=== PATIENT | female | born 1930 | race Caucasian/White ===

== ENCOUNTER 2017-03-03 15:50 | Inpatient (IN) | payer OTHER, MEDICARE ==
[~2017-03-03] VITALS: Ht 152.4 cm; Wt 65.7 kg
[2017-03-03] MEDS ORDERED: NXM/40 PO (16:35)
[2017-03-03] MEDS ORDERED: TRAM-10 PO (16:36)
[2017-03-03] MEDS ORDERED: RRALBUT083 PO (16:37)
[2017-03-03] MEDS ORDERED: SODIUM CHLORIDE 0.9% 500ML 500 ML IV STA (16:42)
--- NOTE | 2017-03-03 16:53 | EMERGENCY ROOM VISIT NOTE ---
History Report prepared by Dinhibe: Uyen Cooper Under the Supervision of: Dr. Bakari Garcia M.D. First contact with patient: 16:36 Chief Complaint: ALTERED MENTAL STATUS Stated Complaint: SLURRED SPEECH - NUMBNESS IN RIGHT ARM Nursing Triage Summary: c/o right arm numbness and then began with slurred speech, unintelligible per granddaughter, speech would be clear and then be garbled and confused and then cleared. 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 She is accompanied by her grand-daughter and daughter in law. The patient states she first experienced numbness in her face that radiated to her right arm as well as slurred speech and confusion. According to her daughter in law, the patient slid out of bed this morning, but they do not think she hit her head. Her family admits to a minor right sided facial droop. The patient states she is unsure if she has ever experienced a TIA or CVA in the past. She denies any recent fevers, cough or cold symptoms, nausea, vomiting or diarrhea. She was treated for a UTI recently but finished the antibiotics over 1 week ago. Her family believes her symptoms seem to "come and go". They admit the patient seems to be displaying dementia symptoms and is "up all night, wandering around and tearing stuff apart". She also hallucinates occasionally. The patient moved to the area approximately 6 weeks ago. Her new primary care physician is Dr. Blank with [facility], but she has only seen Dr. Blank once so far. Source of History: patient, family Onset: 2 hours SIGNAL TESTER Position: other (global) Timing: intermittent Associated Symptoms: + numbness (face, right arm), No fevers, No cough ( cough or cold symptoms), No nausea, No vomiting, No diarrhea Review of Systems See HPI for pertinent positives & negatives. A total of 10 systems reviewed and were otherwise negative. Past Medical & Surgical Medical Problems: (1) History of urinary incontinence Family History Hypertension Social History Smoking Status: Never Smoker Alcohol Use: none Drug Use: none Marital Status: Housing Status: lives with family Occupation Status: retired Current/Historical Medications Scheduled Esomeprazole Magnesium (Nexium), 40 MG PO DAILY Scheduled PRN Albuterol Sulf (Albuterol Sulfate), 3 ML PO Q6 PRN for Shortness of Breath Tramadol (Ultram), 50 MG PO Q8H PRN for Pain Allergies Coded Allergies: No Known Allergies (Unverified , 03/03/17) Physical Exam Vital Signs Date Time Temp Pulse Resp B/P (MAP) Pulse Ox O2 Delivery O2 Flow Rate FiO2 03/03/17 18:23 76 18 135/89 95 Room Air 03/03/17 16:58 95 Room Air 03/03/17 16:37 81 03/03/17 16:07 36.8 94 20 131/83 95 Room Air Physical Exam GENERAL: Patient is in no acute distress. HEENT: No acute trauma, normocephalic atraumatic, mucous membranes moist, no nasal congestion, no scleral icterus. NECK: No stridor, no adenopathy, no meningismus, trachea is midline. LUNGS: Clear to auscultation bilaterally, no wheeze, no rhonchi, breath sounds equal. HEART: Without murmurs gallops or rubs, regular rate and rhythm. ABDOMEN: Soft, nontender, bowel sounds positive, no hernias, no peritonitis. EXTREMITIES: No cyanosis or edema, full range of motion of all the joints without pain or difficulty, no signs for acute trauma. NEUROLOGIC: Some confusion and some difficulty following commands. No obvious focal motor deficits. No pronator drift or cerebellar disfunction. No facial droop or obvious speech slur. SKIN: No rash, no jaundice, no diaphoresis. Medical Decision & Procedures ER Provider Diagnostic Interpretation: Radiology results as stated below per my review and radiologist interpretation: HEST ONE VIEW PORTABLE CLINICAL HISTORY: 86 years-old Female presenting with Stroke. TECHNIQUE: Portable upright AP view of the chest was obtained. COMPARISON: None. FINDINGS: Atherosclerosis of the aortic arch. Mild prominence of the cardiac silhouette. Opacity in the left mid and base. Osseous structures normal. Upper abdomen normal. IMPRESSION: 1. Opacity in the left mid and base. This could represent atelectasis, infection, or aspiration. Electronically signed by: Willam Rashid M.D. 03/03/2017 5:08 PM HEAD WITHOUT CONTRAST (CT) CLINICAL HISTORY: 86 years-old Female presenting with Stroke. TECHNIQUE: Multidetector CT imaging of the head was performed without the use of intravenous contrast. IV contrast: None. A dose lowering technique was used consistent with the principles of ALARA (as low as reasonably achievable). COMPARISON: None. CT DOSE (mGy.cm): The estimated cumulative dose is 712.55 mGy.cm. FINDINGS: [employer] topogram: Unremarkable. Ventricles and sulci normal in size. Periventricular and subcortical white matter hypoattenuation nonspecific but likely indicative of chronic small vessel ischemic change. No mass effect or midline shift. No hemorrhage or acute territorial infarct. No extra-axial fluid collection. Paranasal sinuses and mastoid air cells clear. Calvarium intact. IMPRESSION: 1. No acute intracranial pathology. Electronically signed by: Willam Rashid M.D. 03/03/2017 6:05 PM Laboratory Results Test 03/03/17 16:21 03/03/17 16:55 03/03/17 17:05 Bedside Glucose 106 mg/dl (70-90) Prothrombin Time 10.9 SECONDS (9.0-12.0) Prothromb Time International Ratio 1.0 (0.9-1.1) Activated Partial Thromboplast Time 24.4 SECONDS (21.0-31.0) Partial Thromboplastin Ratio 0.9 Total Bilirubin 0.6 mg/dl (0.2-1) Direct Bilirubin 0.2 mg/dl (0-0.2) Aspartate Amino Transf (AST/SGOT) 13 U/L (15-37) Alanine Aminotransferase (ALT/SGPT) 14 U/L (12-78) Alkaline Phosphatase 76 U/L (45-117) Total Creatine Kinase 46 U/L (26-192) Creatine Kinase MB 0.8 ng/ml (0.5-3.6) Creatine Kinase MB Ratio 1.7 (0-3.0) Total Protein 6.5 gm/dl (6.4-8.2) Albumin 3.4 gm/dl (3.4-5.0) Urine Color YELLOW Urine Appearance CLOUDY (CLEAR) Urine pH 5.0 (4.5-7.5) Urine Specific [place] 1.019 (1.000-1.030) Urine Protein NEG (NEG) Urine Glucose (UA) NEG (NEG) Urine Ketones TRACE (NEG) Urine Occult Blood TRACE (NEG) Urine Nitrite POS (NEG) Urine Bilirubin NEG (NEG) Urine Urobilinogen NEG (NEG) Urine Leukocyte Esterase MODERATE (NEG) Urine WBC (Auto) >30 /hpf (0-5) Urine RBC (Auto) 0-4 /hpf (0-4) Urine Hyaline Casts (Auto) 1-5 /lpf (0-5) Urine Epithelial Cells (Auto) 5-10 /lpf (0-5) Urine Bacteria (Auto) 4+ (NEG) Laboratory results reviewed by me. Medications Administered Medications (Trade) Dose Ordered Sig/Caroline Route Start Time Stop Time Status Last Admin Dose Admin Sodium Chloride 500 ml @ 999 mls/hr Q31M STAT IV 03/03/17 16:42 03/03/17 17:12 DC 03/03/17 18:23 999 MLS/HR Piperacillin Sod/ Tazobactam Sod (Zosyn Iv) 4.5 gm NOW STAT IV 03/03/17 17:40 03/03/17 23:56 DC 03/03/17 18:23 4.5 GM Sodium Chloride 1,000 ml @ 50 mls/hr Q20H IV 03/03/17 18:52 04/02/17 18:51 03/03/17 18:52 50 MLS/HR ECG Indication: weakness Rate (beats per minute): 85 Rhythm: normal sinus Findings: no acute ischemic change, other (non-specific T-wave changes) ED Course 163: The patient was evaluated in room B6. A complete history and physical exam was performed. 1643: NSS 500 ml @ 999 mls/hr IV. 1740: Zosyn 4.5 gm IV. 1817: I reevaluated the patient. She is resting comfortably. I discussed her results and my recommendation she remain in the hospital for further evaluation and management she and her family verbalized complete understanding and agreement. 182: I discussed the patients case with Dr. Long, [facility] Hospitalist. The patient will be further evaluated. Medical Decision The differential diagnoses considered include stroke, intracranial bleeding, dehydration, UTI, liver or renal failure, pneumonia and TIA. There is no leukocytosis or concerning anemia. No significant electrolyte abnormality, kidney failure or hepatitis. Brain CT does not show any acute bleed or mass effect. EKG shows a normal sinus rhythm, no acute ischemia. Chest film shows a possible mass or maybe even pneumonia at the left base. Further imaging and follow-up was recommended-the patient is not coughing so I highly doubt pneumonia. Urinalysis does show infection. A urine culture and blood cultures are pending. There is no coagulopathy. Cardiac enzyme testing times one is not consistent with acute cardiac injury. The patient received IV saline. She was given IV Zosyn for the diagnosis of UTI. The patient presents with intermittent neurologic symptoms. Right now, I find no focal neurologic deficits. She is not a candidate for TPA given her exam. TIA is a consideration as a cause for her presentation. Her symptoms also could be caused by the UTI. I do think a hospital stay is required. The patient can have the left chest abnormality further worked up while in the hospital. I did talk to the patient and case management. The on-call hospitalist was consulted. Medication Reconcilliation Current Medication List: was personally reviewed by me Blood Pressure Screening Patient's blood pressure: Normal blood pressure Blood pressure disposition: Did not require urgent referral Consults Time Called: 1819 Consulting Physician: [facility] Hospitalist Returned Call: 1820 I discussed the patients case with [facility]. The patient will be further evaluated. Impression Primary Impression: Stroke-like symptoms Additional Impression: UTI (urinary tract infection) Scribe Attestation The scribe's documentation has been prepared under my direction and personally reviewed by me in its entirety. I confirm that the note above accurately reflects all work, treatment, procedures, and medical decision making performed by me. Departure Information Dispostion Being Evaluated By Hospitalist Referrals No Doctor, Assigned (PCP) Patient Instructions My [facility] Stroke History Time Last Known Well about 2 hours ago Stroke t-PA Criteria Reviewed Does NOT meet criteria for t-PA (Last known well time is 1430 today) Reason t-PA Not Given Treatment not indicated (TPA not given) Problem Qualifiers
--- NOTE | 2017-03-03 17:10 | DIAGNOSTIC IMAGING REPORT ---
CHEST ONE VIEW PORTABLE CLINICAL HISTORY: 86 years-old Female presenting with Stroke. TECHNIQUE: Portable upright AP view of the chest was obtained. COMPARISON: None. FINDINGS: Atherosclerosis of the aortic arch. Mild prominence of the cardiac silhouette. Opacity in the left mid and base. Osseous structures normal. Upper abdomen normal. IMPRESSION: 1. Opacity in the left mid and base. This could represent atelectasis, infection, or aspiration. Electronically signed by: Willam Rashid M.D. 03/03/2017 5:08 PM Dictated Date/Time: 03/03/2017 5:05 PM
[2017-03-03 17:16] LABS: BASO % 0.4 %; BASO ABS # 0.03 K/uL (0-0.2); COMPLETE YES; EOS % 1.1 %; HEMATOCRIT 41.2 % (37-47); IG% 0.2 %; LYMPH % 34.5 %; LYMPH ABS # 2.82 K/uL (1.2-3.4); MEAN CELL VOLUME 85.5 fL (80-100); MEAN CORPUSCULAR HEMOGLOBIN 29.7 pg (25-34); MEAN CORPUSCULAR HGB CONC 34.7 g/dl (32-36); MEAN PLATELET VOLUME 10.4 fL (7.4-10.4); MONO % 15.5 %; NEUT % 48.3 %; PLATELET COUNT 241 K/uL (130-400); RED BLOOD COUNT 4.82 M/uL (4.2-5.4); WHITE BLOOD COUNT 8.18 K/uL (4.8-10.8)
[2017-03-03 17:29] LABS: PARTIAL THROMBOPLASTIN RATIO 0.9; PROTHROMBIN TIME (PATIENT) 10.9 SECONDS (9.0-12.0)
[2017-03-03] MEDS ORDERED: PIPERACILLIN/TAZOBACTAM 4.5 GM/100ML D5W IV STA (17:40)
[2017-03-03 17:42] LABS: BLOOD UREA NITROGEN 16 mg/dl (7-18); BUN/CREATININE RATIO 16.3 (10-20); CALCIUM 9.1 mg/dl (8.5-10.1); CARBON DIOXIDE 25 mmol/L (21-32); CHLORIDE 108 mmol/L (98-107); GLUCOSE 104 mg/dl (70-99); POTASSIUM 3.7 mmol/L (3.5-5.1); SODIUM 141 mmol/L (136-145)
[2017-03-03 17:47] LABS: CKMB/CK RATIO 1.7 (0-3.0)
[2017-03-03 17:52] LABS: URINE APPEARANCE CLOUDY (CLEAR); URINE BILIRUBIN NEG (NEG); URINE COLOR YELLOW; URINE NITRITE POS (NEG); URINE SPECIFIC GRAVITY 1.019 (1.000-1.030); UROBILINOGEN NEG (NEG)
--- NOTE | 2017-03-03 18:07 | DIAGNOSTIC IMAGING REPORT ---
HEAD WITHOUT CONTRAST (CT) CLINICAL HISTORY: 86 years-old Female presenting with Stroke. TECHNIQUE: Multidetector CT imaging of the head was performed without the use of intravenous contrast. IV contrast: None. A dose lowering technique was used consistent with the principles of ALARA (as low as reasonably achievable). COMPARISON: None. CT DOSE (mGy.cm): The estimated cumulative dose is 712.55 mGy.cm. FINDINGS: Water Main Pipe Layer topogram: Unremarkable. Ventricles and sulci normal in size. Periventricular and subcortical white matter hypoattenuation nonspecific but likely indicative of chronic small vessel ischemic change. No mass effect or midline shift. No hemorrhage or acute territorial infarct. No extra-axial fluid collection. Paranasal sinuses and mastoid air cells clear. Calvarium intact. IMPRESSION: 1. No acute intracranial pathology. Electronically signed by: Willam Rashid M.D. 03/03/2017 6:05 PM Dictated Date/Time: 03/03/2017 6:03 PM
[2017-03-03 18:08] LABS: MANUAL MICROSCOPIC REQUIRED? NO; REVIEW REQ? NO
[2017-03-03] MEDS: SODIUM CHLORIDE 0.9% 1000ML 1,000 ML IV SCH (18:52)
[2017-03-03] MEDS ORDERED: ALUMINUM/MAGNESIUM/SIMETH (MAALOX MAX) 30 ML UDC PO PRN (19:00)
[2017-03-03] MEDS ORDERED: ONDANSETRON INJ 2 MG/ML 2 ML VIAL IV PRN (19:00)
[2017-03-03] MEDS ORDERED: ALBUTEROL 0.083% NEBU SOLN 3 ML VIAL INH PRN (19:00)
[2017-03-03] MEDS ORDERED: PHARMACIST DISCHARGE MED REC CONSULT PRN (19:00)
[2017-03-03] MEDS ORDERED: MAGNESIUM HYDROXIDE SUSP 30 ML UDC PO PRN (19:00)
[2017-03-03] MEDS ORDERED: TRAMADOL HCL 50 MG TAB PO PRN (19:00)
[2017-03-03] MEDS ORDERED: NITROGLYCERIN 0.4 MG SL PER TAB CHARGE SL PRN (19:00)
[2017-03-03] MEDS ORDERED: ACETAMINOPHEN 325 MG TAB PO PRN (19:00)
[2017-03-03] MEDS ORDERED: ASPIRIN 81 MG CHEW PO STA (19:04)
--- NOTE | 2017-03-03 21:05 | DIAGNOSTIC IMAGING REPORT ---
CAROTID DOPPLER NECK ART CLINICAL HISTORY: 86 years-old Female presenting with Stroke. TECHNIQUE: Real-time grayscale and color and spectral Doppler ultrasound imaging of the bilateral carotid arteries was performed. NASCET criteria was used in evaluating this study. COMPARISON: None. FINDINGS: Right: Common carotid: Patent. Peak systolic velocity 57 cm/s. Internal carotid artery: Minimal atherosclerotic plaque proximally. Peak systolic velocity 36 cm/s. External carotid artery: Patent. Peak systolic velocity 51 cm/s. Systolic ratio: 0.63. Left: Common carotid: Patent. Peak systolic velocity 43 cm/s. Internal carotid artery: Minimal atherosclerotic plaque proximally. Tortuosity also noted. Peak systolic velocity 96 cm/s. External carotid artery: Patent. Peak systolic velocity 57 cm/s. Systolic ratio: 2.23. Bilateral antegrade flow within the vertebral arteries. Reference ranges: Normal ICA peak systolic velocity less than 125 cm/s. Normal ICA peak systolic velocity to common carotid artery velocity ratio is less than 2: less than 2 equates to less than 50% stenosis, 2-4 equates to 50-69% stenosis, greater than 4 equates to greater than or equal to 70% stenosis. Normal ICA end-diastolic velocity less than 40. Blood pressure Brachial: Right: 147/80 mmHg, Left: 143/76 mmHg. IMPRESSION: Relative hemodynamically significant elevation of left internal carotid artery velocity likely secondary to tortuosity. No focal stenosis resulting from atherosclerotic plaque. Electronically signed by: Willam Rashid M.D. 03/03/2017 9:04 PM Dictated Date/Time: 03/03/2017 9:01 PM
[2017-03-03 21:06] VITALS: BP 143/85; PULSE 68; TEMP 36.6; O2SAT 94
--- NOTE | 2017-03-03 21:39 | HISTORY & PHYSICAL EXAMINATION ---
DATE OF ADMISSION: 03/03/2017 CHIEF COMPLAINT: Numbness in the right upper extremity and right face. HISTORY OF PRESENT ILLNESS: This is an 86-year-old female with a past medical history significant for GERD, asthma and decreased vision in both eyes who recently moved from [place] to live with her son, recently establishing with [employer] [facility] [employer]; saw the [facility] doctor about a month ago and was treated for UTI with Cipro, comes today because of right face and right upper extremity numbness. The patient's family is in the room. As per them, around 2:30pm the patient complained of numbness in her right upper extremity and also in the right side of the face. She developed some pain in right side of face and numbness and also some slurred speech at that time. It lasted for about an hour and when she was brought into the ER the symptoms had resolved. Currently she is resting comfortably, hemodynamically stable and all her symptoms have resolved; she is able to move her right extremity and there is no numbness in the right extremity. There is no pain. As per the family the patient also has dementia, lately she is not sleeping in the night, she sometimes hallucinates in the night and she dozes off in the daytime. Appetite is not great. The patient denies any chest pain, no shortness of breath. No headache. [place] some lightheadedness earlier today. No recent fever or chills. No cough, no nausea and no abdominal pain. Normal bowel and bladder movements. ALLERGIES: No known drug allergies. PAST MEDICAL HISTORY: As mentioned above. PAST SURGICAL HISTORY: Cataract surgery and bilateral total knee arthroplasty. MEDICATIONS: The patient is on Nexium 40 mg p.o. daily and ipratropium nebulization every 4 times a day. FAMILY HISTORY: No family history on file. SOCIAL HISTORY: Never smoked. No alcohol use, no drug use. Has passive smoking history. , currently living with her son. REVIEW OF SYMPTOMS: As per HPI. Rest of review of symptoms negative. PHYSICAL EXAMINATION: GENERAL: The patient is old and frail, not in distress. VITAL SIGNS: Temperature 36.8, pulse 76, respiratory rate 18, blood pressure 135/89 and oxygen 95% on room air. HEENT: No pallor, no icterus. Pupils are equal, round and reactive to light. NECK: No JVD, no neck masses, no carotid bruits. CARDIOVASCULAR: S1, S2 heard, regular rate and rhythm, no murmur, no gallop. RESPIRATORY SYSTEM: Clear to auscultation bilaterally. No accessory muscle use. No wheezing, no crackles. ABDOMEN: Soft, bowel sounds present. Nontender. No distention. CENTRAL NERVOUS SYSTEM: Cranial nerves II-XII grossly intact. Power 5/5 in all extremities. No pronator drift. Sensation is intact. Could not complete the exam as the patient is somewhat noncooperative secondary to her dementia. EXTREMITIES: No edema, no erythema. LABORATORIES: Sodium 141, potassium 3.7, chloride 108, bicarbonate 25, BUN 16, creatinine 1. Serum glucose 104, calcium 9.1, total bilirubin 0.6 direct bilirubin 0.2, AST 13, ALT 14, alkaline phosphatase 76, total creatinine kinase 46, CK-MB 0.8 and troponin I less than 0.015. Albumin 3.4. WBC 8.18, hemoglobin 14.3, hematocrit 41.2, platelets 241. PT 10.9, INR 1, PTT 24.4. Urinalysis is positive for leukocyte esterase. CT of the head; no acute intracranial pathology is seen. Chest x-ray; opacity in the left mid and base; this could represent atelectasis, infection or aspiration. EKG; normal sinus rhythm with rate of 85. No acute ST changes seen. ASSESSMENT AND PLAN: 1. This is an 86-year-old female, who presents with possible cerebrovascular accident versus transient ischemic attack who presents with right-sided face and right upper extremity numbness and some slurred speech which has resolved. The patient is currently back to her baseline. CT of the head is unremarkable. The patient was also recently treated for urinary tract infection with Cipro. questionable metabolic encephalopathy? patient was given Zosyn in ER. We will give aspirin and place her on statin. We will do a stroke workup with MRI and MRA of the head, carotid Doppler and echocardiogram. Neuro checks. Monitor on tele floor and consult neurology in the morning. Physical therapy and occupational therapy when able. The patient is not on any blood pressure medication. Blood pressure is okay currently. We will check a fasting lipid profile. 2. Possible urinary tract infection, follow urine cultures and currently place on Zosyn. 3. Gastroesophageal reflux disease, continue Proton Pump Inhibitors. 4. Asthma. Continue nebulizers, 5 .deep venous thrombosis prophylaxis and TEDs for now. 6. Code status; level 1 full code for now. 7. Disposition: Admit to the telemetry floor. Physical therapy and occupational therapy prior to discharge. Social Service to help with discharge planning. SHAHBAZ
[2017-03-03] MEDS ORDERED: PIPERACILL/TAZOBAC CONSULT ACTIVE PRN (21:45)
[2017-03-03 22:42] VITALS: BP 143/85; PULSE 68; TEMP 36.6; O2SAT 94; Ht 152.4 cm; Wt 65.7 kg
[2017-03-03 23:24] VITALS: BP 157/91; PULSE 69; TEMP 36.6; O2SAT 95
[2017-03-03] MEDS ORDERED: CEFTRIAXONE SOD INJ 1 GM ADDVIAL IM STA (23:53)
--- NOTE | 2017-03-03 23:55 | Progress Note ---
Internal Med Progress Note Date of Service: Mar 03, 2017. Provider Documentation: Made aware by RN of inability to gain alternative IV access after multiple attempts - after patient tore out her IV access earlier. Unable to give Zosyn for UTI. Substitute IM ceftriaxone for Zosyn for UTI for now while IV access unavailable. Follow urine cultures. Will relay 2 AM provider. Vital Signs: Date Time Temp Pulse Resp B/P (MAP) Pulse Ox O2 Delivery O2 Flow Rate FiO2 03/04/17 07:05 36.5 66 16 152/83 (106) 94 Room Air 03/04/17 05:17 36.6 68 20 170/82 (111) 97 Room Air 03/04/17 04:00 Room Air 03/04/17 00:00 Room Air 03/03/17 23:24 36.6 69 20 157/91 (113) 95 Room Air 03/03/17 22:42 36.6 68 18 143/85 94 Room Air 03/03/17 21:06 36.6 68 18 143/85 (104) 94 Room Air 03/03/17 19:46 78 16 130/75 96 03/03/17 18:23 76 18 135/89 95 Room Air 03/03/17 16:58 95 Room Air 03/03/17 16:37 81 03/03/17 16:07 36.8 94 20 131/83 95 Room Air Lab Results: Results Past 24 Hours Test 03/03/17 16:21 03/03/17 16:55 03/03/17 17:05 03/04/17 00:43 Range/Units Bedside Glucose 106 70-90 mg/dl White Blood Count 8.18 4.8-10.8 K/uL Red Blood Count 4.82 4.2-5.4 M/uL Hemoglobin 14.3 12.0-16.0 g/dL Hematocrit 41.2 37-47 % Mean Corpuscular Volume 85.5 80-100 fL Mean Corpuscular Hemoglobin 29.7 25-34 pg Mean Corpuscular Hemoglobin Concent 34.7 32-36 g/dl Platelet Count 241 130-400 K/uL Mean Platelet Volume 10.4 7.4-10.4 fL Neutrophils (%) (Auto) 48.3 % Lymphocytes (%) (Auto) 34.5 % Monocytes (%) (Auto) 15.5 % Eosinophils (%) (Auto) 1.1 % Basophils (%) (Auto) 0.4 % Neutrophils # (Auto) 3.95 1.4-6.5 K/uL Lymphocytes # (Auto) 2.82 1.2-3.4 K/uL Monocytes # (Auto) 1.27 0.11-0.59 K/uL Eosinophils # (Auto) 0.09 0-0.5 K/uL Basophils # (Auto) 0.03 0-0.2 K/uL RDW Standard Deviation 42.9 36.4-46.3 fL RDW Coefficient of Variation 13.7 11.5-14.5 % Immature Granulocyte % (Auto) 0.2 % Immature Granulocyte # (Auto) 0.02 0.00-0.02 K/uL Prothrombin Time 10.9 9.0-12.0 SECONDS Prothromb Time International Ratio 1.0 0.9-1.1 Activated Partial Thromboplast Time 24.4 21.0-31.0 SECONDS Partial Thromboplastin Ratio 0.9 Sodium Level 141 136-145 mmol/L Potassium Level 3.7 3.5-5.1 mmol/L Chloride Level 108 98-107 mmol/L Carbon Dioxide Level 25 21-32 mmol/L Anion Gap 8.0 3-11 mmol/L Blood Urea Nitrogen 16 7-18 mg/dl Creatinine 1.00 0.60-1.20 mg/dl Est Creatinine Clear Calc Drug Dose 33.0 ml/min Estimated GFR () 58.3 Estimated GFR (Non- 50.3 BUN/Creatinine Ratio 16.3 10-20 Random Glucose 104 70-99 mg/dl Calcium Level 9.1 8.5-10.1 mg/dl Total Bilirubin 0.6 0.2-1 mg/dl Direct Bilirubin 0.2 0-0.2 mg/dl Aspartate Amino Transf (AST/SGOT) 13 15-37 U/L Alanine Aminotransferase (ALT/SGPT) 14 12-78 U/L Alkaline Phosphatase 76 45-117 U/L Total Creatine Kinase 46 26-192 U/L Creatine Kinase MB 0.8 0.5-3.6 ng/ml Creatine Kinase MB Ratio 1.7 0-3.0 Troponin I < 0.015 < 0.015 0-0.045 ng/ml Total Protein 6.5 6.4-8.2 gm/dl Albumin 3.4 3.4-5.0 gm/dl Urine Color YELLOW Urine Appearance CLOUDY CLEAR Urine pH 5.0 4.5-7.5 Urine Specific [place] 1.019 1.000-1.030 Urine Protein NEG NEG Urine Glucose (UA) NEG NEG Urine Ketones TRACE NEG Urine Occult Blood TRACE NEG Urine Nitrite POS NEG Urine Bilirubin NEG NEG Urine Urobilinogen NEG NEG Urine Leukocyte Esterase MODERATE NEG Urine WBC (Auto) >30 0-5 /hpf Urine RBC (Auto) 0-4 0-4 /hpf Urine Hyaline Casts (Auto) 1-5 0-5 /lpf Urine Epithelial Cells (Auto) 5-10 0-5 /lpf Urine Bacteria (Auto) 4+ NEG Test 03/04/17 08:47 Range/Units White Blood Count 7.24 4.8-10.8 K/uL Red Blood Count 5.11 4.2-5.4 M/uL Hemoglobin 14.7 12.0-16.0 g/dL Hematocrit 44.7 37-47 % Mean Corpuscular Volume 87.5 80-100 fL Mean Corpuscular Hemoglobin 28.8 25-34 pg Mean Corpuscular Hemoglobin Concent 32.9 32-36 g/dl Platelet Count 232 130-400 K/uL Mean Platelet Volume 10.4 7.4-10.4 fL Neutrophils (%) (Auto) 62.5 % Lymphocytes (%) (Auto) 23.9 % Monocytes (%) (Auto) 11.5 % Eosinophils (%) (Auto) 1.4 % Basophils (%) (Auto) 0.6 % Neutrophils # (Auto) 4.53 1.4-6.5 K/uL Lymphocytes # (Auto) 1.73 1.2-3.4 K/uL Monocytes # (Auto) 0.83 0.11-0.59 K/uL Eosinophils # (Auto) 0.10 0-0.5 K/uL Basophils # (Auto) 0.04 0-0.2 K/uL RDW Standard Deviation 43.2 36.4-46.3 fL RDW Coefficient of Variation 13.5 11.5-14.5 % Immature Granulocyte % (Auto) 0.1 % Immature Granulocyte # (Auto) 0.01 0.00-0.02 K/uL Sodium Level 142 136-145 mmol/L Potassium Level 3.8 3.5-5.1 mmol/L Chloride Level 109 98-107 mmol/L Carbon Dioxide Level 28 21-32 mmol/L Anion Gap 5.0 3-11 mmol/L Blood Urea Nitrogen 12 7-18 mg/dl Creatinine 0.95 0.60-1.20 mg/dl Est Creatinine Clear Calc Drug Dose 34.5 ml/min Estimated GFR () 62.0 Estimated GFR (Non- 53.5 BUN/Creatinine Ratio 12.4 10-20 Random Glucose 120 70-99 mg/dl Calcium Level 9.0 8.5-10.1 mg/dl Troponin I < 0.015 0-0.045 ng/ml Triglycerides Level 67 0-150 mg/dl Cholesterol Level 173 0-200 mg/dl HDL Cholesterol 64 mg/dl LDL Cholesterol, Calculated 96 mg/dl VLDL Cholesterol, Calculated 13 mg/dl Cholesterol/HDL Ratio 2.7 Microbiology Results 03/03/17 Blood Culture, Received Pending 03/03/17 Blood Culture, Received Pending 03/03/17 Urine Culture - Preliminary, Resulted Gram Negative Bacilli
[2017-03-04] VITALS (9 sets, daily range): BP systolic 142–170; BP diastolic 81–94; PULSE 66–78; TEMP 35.6–36.6; O2SAT 94–97
[2017-03-04] MEDS ORDERED: PIPERACILL/TAZOBAC IV 3.375 GM in DEXTROSE 5% 100ML 100 ML IV SCH ×2
[2017-03-04] MEDS ORDERED: CEFTRIAXONE SOD IM 1,000 MG in SYRINGE 0 ML IM SCH (01:00)
[2017-03-04] MEDS ORDERED: HALOPERIDOL LACTATE 5 MG/ML 1 ML VIAL IM PRN (04:15)
--- NOTE | 2017-03-04 07:25 | Clinical Documentation Query ---
Dr. [facility] : CLINICAL DOCUMENTATION QUERY Patient is an 86 year old female presenting with symptoms suggestive of TIA or CVA. Patient recently treated for UTI with Ciprofloxacin. UA on admission positive for nitrite and leukocyte esterase. Patient was given Zosyn. Urine culture pending. Continued on Zosyn. Noted to have been ordered IM Haldol in the early a.m. hours of 03/04. Please clarify as clinically appropriate. Thank you. In your clinical opinion is this patient being managed for: ( x ) (Possible/Likely/Suspected) Metabolic encephalopathy secondary to UTI ( ) Other explanation of clinical findings (Please Explain) ( ) Unable to determine (Please Define) ( ) Need to Discuss ( ) Not Agree The medical record reflects the following clinical findings, treatment, and risk factors. Clinical Indicators: As above Treatment:Patient recently treated for UTI with Ciprofloxacin. UA on admission positive for nitrite and leukocyte esterase. Patient was given Zosyn. Urine culture pending. Continued on Zosyn. Risk Factors:Age, gender Please clarify and document your clinical opinion in the progress notes and discharge summary. Terms such as "probable", "suspected", "likely", "questionable", "possible", or "still to be ruled out" are acceptable. IF IN AGREEMENT, YOU MUST DOCUMENT ABOVE DIAGNOSTIC STATEMENT IN DAILY PROGRESS NOTES AND DISCHARGE SUMMARY. This document is not part of the patient's record. Thank You, Farooq Buck RN [phone]
[2017-03-04] MEDS: ATORVASTATIN 40 MG TAB PO SCH (08:50)
[2017-03-04] MEDS: PANTOprazole SOD 40 MG TAB PO SCH (08:50)
[2017-03-04 09:12] LABS: BASO % 0.6 %; BASO ABS # 0.04 K/uL (0-0.2); COMPLETE YES; EOS % 1.4 %; HEMATOCRIT 44.7 % (37-47); IG% 0.1 %; LYMPH % 23.9 %; LYMPH ABS # 1.73 K/uL (1.2-3.4); MEAN CELL VOLUME 87.5 fL (80-100); MEAN CORPUSCULAR HEMOGLOBIN 28.8 pg (25-34); MEAN CORPUSCULAR HGB CONC 32.9 g/dl (32-36); MEAN PLATELET VOLUME 10.4 fL (7.4-10.4); MONO % 11.5 %; NEUT % 62.5 %; PLATELET COUNT 232 K/uL (130-400); RED BLOOD COUNT 5.11 M/uL (4.2-5.4); WHITE BLOOD COUNT 7.24 K/uL (4.8-10.8)
--- NOTE | 2017-03-04 09:24 | DIAGNOSTIC IMAGING REPORT ---
(CHEST) THORAX WITHOUT CLINICAL HISTORY: Abnormal chest x-ray. Left basilar opacity. COMPARISON STUDY: Chest x-ray dated 03/03/2017 CT DOSE: 218.45 mGycm TECHNIQUE: CT of the thorax was performed from the thoracic inlet to the lung bases. Images are reviewed in the axial, sagittal, and coronal planes. IV contrast was not administered for this examination. A dose lowering technique was utilized adhering to the principles of ALARA. FINDINGS: Thyroid: There is a thyroid goiter present. Thoracic aorta: The thoracic aorta is normal in course and caliber, noting standard 3 vessel arch anatomy. Heart: There are coronary artery calcifications present. Lungs and pleural spaces: No pleural effusions are visualized. There are minor left basilar atelectatic changes. No suspicious pulmonary masses are visualized. There is no evidence of pneumonia. Mediastinum: There is no evidence of pathologic adenopathy. Jessica: There is no evidence of pathologic adenopathy given the limitations of a noncontrast study Axilla: There is no evidence of pathologic adenopathy Upper abdomen: There is a large hiatal hernia which explains the left basilar opacity described on the most recent chest x-ray. There is evidence for adrenal hyperplasia. Skeletal structures: There are no lytic or blastic osseous lesions. IMPRESSION: 1. Large hiatal hernia which explains the left basilar opacity described on the chest x-ray dated 03/03/2017 2. No evidence of pneumonia 3. No evidence of pathologic adenopathy 4. Thyroid goiter Electronically signed by: Quang Contreras M.D. 03/04/2017 9:23 AM Dictated Date/Time: 03/04/2017 9:17 AM
[2017-03-04 09:38] LABS: BUN/CREATININE RATIO 12.4 (10-20); CREATININE 0.95 mg/dl (0.60-1.20); POTASSIUM 3.8 mmol/L (3.5-5.1)
[2017-03-04 09:41] LABS: CHOLESTEROL/HDL RATIO 2.7
[2017-03-04] MEDS: ASPIRIN 81 MG ECTAB PO SCH (09:50)
[2017-03-04] MEDS: HALOPERIDOL 1 MG TAB PO PRN (10:18)
[2017-03-04] MEDS ORDERED: OLANZAPINE 10 MG/2.1 ML SDV IM ONE (11:45)
[2017-03-04 11:55] LABS: ESTIMATED AVERAGE GLUCOSE 123 mg/dl; HA1C FLAG Normal (Normal)
[2017-03-04] MEDS: SODIUM CHLORIDE 0.9% 1000ML 1,000 ML IV SCH (15:56)
--- NOTE | 2017-03-04 17:43 | Progress Note ---
Internal Med Progress Note Date of Service: Mar 04, 2017. Provider Documentation: SUBJECTIVE: was agitated in the morning received im Haldol currently calmer and somewhat drowsy denes any pain afebrile OBJECTIVE: Vital Signs-as noted below Exam: General-alert and awake. Not in distress ENT-normal hearing Neck-no neck masses Lungs-cta b/l no wheezing or crackles Heart-s1 and s2 heard regular rhythm no murmurs Abdomen-soft bowel sounds present non tender no distension Extremities-no edema no erythema Neuro-alert and awake moves extremities Lab data as noted below. ASSESSMENT & PLAN: 1. This is an 86-year-old female, who presents with possible cerebrovascular accident versus transient ischemic attack who presents with right-sided face and right upper extremity numbness and some slurred speech which has resolved. The patient is currently back to her baseline. CT of the head is unremarkable. Started on aspirin and statin carotid us unremarkable await mri/mra head neuro consulted. 2. Possible urinary tract infection, metabolic encephalopathy? on rocephin f/u cx. 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 Gastroesophageal reflux disease, continue Proton Pump Inhibitors. 5. Asthma. Continue nebulizers, 6 .deep venous thrombosis prophylaxis and TEDs for now. 7. Code status; level 1 full code for now. DISPOSITION to be determined. Vital Signs: Date Time Temp Pulse Resp B/P (MAP) Pulse Ox O2 Delivery O2 Flow Rate FiO2 03/04/17 15:29 36.4 69 20 157/91 (113) 96 Room Air 03/04/17 12:40 36.3 70 18 142/90 (107) 94 Room Air 03/04/17 12:00 94 Room Air 03/04/17 08:00 94 Room Air 03/04/17 07:05 36.5 66 16 152/83 (106) 94 Room Air 03/04/17 05:17 36.6 68 20 170/82 (111) 97 Room Air 03/04/17 04:00 Room Air 03/04/17 00:00 Room Air 03/03/17 23:24 36.6 69 20 157/91 (113) 95 Room Air 03/03/17 22:42 36.6 68 18 143/85 94 Room Air 03/03/17 21:06 36.6 68 18 143/85 (104) 94 Room Air 03/03/17 19:46 78 16 130/75 96 03/03/17 18:23 76 18 135/89 95 Room Air Lab Results: Results Past 24 Hours Test 03/04/17 00:43 03/04/17 08:47 Range/Units Troponin I < 0.015 < 0.015 0-0.045 ng/ml White Blood Count 7.24 4.8-10.8 K/uL Red Blood Count 5.11 4.2-5.4 M/uL Hemoglobin 14.7 12.0-16.0 g/dL Hematocrit 44.7 37-47 % Mean Corpuscular Volume 87.5 80-100 fL Mean Corpuscular Hemoglobin 28.8 25-34 pg Mean Corpuscular Hemoglobin Concent 32.9 32-36 g/dl Platelet Count 232 130-400 K/uL Mean Platelet Volume 10.4 7.4-10.4 fL Neutrophils (%) (Auto) 62.5 % Lymphocytes (%) (Auto) 23.9 % Monocytes (%) (Auto) 11.5 % Eosinophils (%) (Auto) 1.4 % Basophils (%) (Auto) 0.6 % Neutrophils # (Auto) 4.53 1.4-6.5 K/uL Lymphocytes # (Auto) 1.73 1.2-3.4 K/uL Monocytes # (Auto) 0.83 0.11-0.59 K/uL Eosinophils # (Auto) 0.10 0-0.5 K/uL Basophils # (Auto) 0.04 0-0.2 K/uL RDW Standard Deviation 43.2 36.4-46.3 fL RDW Coefficient of Variation 13.5 11.5-14.5 % Immature Granulocyte % (Auto) 0.1 % Immature Granulocyte # (Auto) 0.01 0.00-0.02 K/uL Sodium Level 142 136-145 mmol/L Potassium Level 3.8 3.5-5.1 mmol/L Chloride Level 109 98-107 mmol/L Carbon Dioxide Level 28 21-32 mmol/L Anion Gap 5.0 3-11 mmol/L Blood Urea Nitrogen 12 7-18 mg/dl Creatinine 0.95 0.60-1.20 mg/dl Est Creatinine Clear Calc Drug Dose 34.5 ml/min Estimated GFR () 62.0 Estimated GFR (Non- 53.5 BUN/Creatinine Ratio 12.4 10-20 Random Glucose 120 70-99 mg/dl Estimated Average Glucose 123 mg/dl Hemoglobin A1c 5.9 4.5-5.6 % Calcium Level 9.0 8.5-10.1 mg/dl Triglycerides Level 67 0-150 mg/dl Cholesterol Level 173 0-200 mg/dl HDL Cholesterol 64 mg/dl LDL Cholesterol, Calculated 96 mg/dl VLDL Cholesterol, Calculated 13 mg/dl Cholesterol/HDL Ratio 2.7
--- NOTE | 2017-03-04 18:35 | ECHOCARDIOGRAM REPORT ---
*NOTICE TO RECEIVING [employer] This information is strictly Confidential and protected under [place] law. [place] law prohibits you from making any further disclosure of this information unless further disclosure is expressly permitted by the written consent of the person to whom it pertains or is authorized by law. A general authorization for the release of medical or other information is not sufficient for this purpose. Hospital accepts no responsibility if the information is made available to any other person, INCLUDING THE PATIENT. Interpretation Summary * Name: CATA DELGADO I Study Date: 03/04/2017 07:07 AM BP: 170/82 mmHg * Patient Location: [facility]\S\N276\S\1 HR: 54 * : 1930 (M/d[birth year]yy) Gender: Female Height: 60 in * Age: 86 yrs Ethnicity: CA Weight: 145 lb * Ordering Physician: Bismark Long * Referring Physician: Dee Blank * Performed By: Puja Lindquist RCS * * Reason For Study: CVA / TIA * BSA: 1.6 m2 * The study was technically adequate. * -- Conclusions -- * The left ventricular wall motion is normal. * There is mild concentric left ventricular hypertrophy. * The LV Ejection Fraction = 60-65%. * Trace aortic regurgitation. * There is mild tricuspid regurgitation. * Doppler findings do not suggest pulmonary hypertension. * Grade I diastolic dysfunction, (abnormal relaxation pattern). * The atrial septum is aneurysmal. * There is no evidence of atrial septal defect, but resolution does not allow assessment for a patent foramen ovale. Procedure Details * A complete two-dimensional transthoracic echocardiogram was performed (2D, M-mode, Doppler and color flow Doppler). * Unable to do Bubble Study due to the patient not having an active IV. IV Team not able to access a site. Left Ventricle * The left ventricle is normal in size. * There is mild concentric left ventricular hypertrophy. * Left ventricular systolic function is normal. * Ejection Fraction = 60-65%. * The left ventricular wall motion is normal. Right Ventricle * The right ventricle is normal size. * The right ventricular systolic function is normal as assessed by tricuspid annular plane systolic excursion (TAPSE) (normal >1.5 cm). Atria * The left atrium is mildly dilated. * Right atrial size is normal. * The atrial septum is aneurysmal. * There is no evidence of atrial septal defect, but resolution does not allow assessment for a patent foramen ovale. Mitral Valve * The mitral valve is normal. * There is no mitral valve stenosis. * Significant mitral regurgitation is absent. Tricuspid Valve * The tricuspid valve is normal. * There is no tricuspid stenosis. * There is mild tricuspid regurgitation. * Doppler findings do not suggest pulmonary hypertension. Aortic Valve * The aortic valve is trileaflet. * Aortic stenosis is absent. * Trace aortic regurgitation. Pulmonic Valve * The pulmonary valve is not well seen, but the Doppler examination is normal without significant regurgitation or stenosis. Great Vessels * The aortic root and proximal ascending aorta are normal sized. Pericardium/Pleural * There is no pericardial effusion. Great Vessels * Normal inferior vena cava diameter and respiratory variation suggests normal central venous pressure. Left Ventricular Diastolic Function * Grade I diastolic dysfunction, (abnormal relaxation pattern). MMode 2D Measurements and Calculations IVSd 1.2 cm IVSs 1.6 cm LVIDd 3.6 cm LVIDs 2.9 cm LVPWd 1.1 cm LVPWs 1.4 cm IVS/LVPW 1.1 FS 20.2 % EDV(Teich) 55.8 ml ESV(Teich) 32.3 ml EF(Teich) 42.1 % EDV(cubed) 48.2 ml ESV(cubed) 24.5 ml EF(cubed) 49.2 % % IVS thick 27.3 % % LVPW thick 27.2 % LV mass(C)d 137.2 grams LV mass(C)dI 84.3 grams/m\S\2 LV mass(C)s 148.1 grams LV mass(C)sI 91.0 grams/m\S\2 SV(Teich) 23.5 ml SI(Teich) 14.4 ml/m\S\2 SV(cubed) 23.7 ml SI(cubed) 14.5 ml/m\S\2 Ao root diam 2.9 cm Ao root area 6.8 cm\S\2 ACS 2.0 cm LA dimension 3.5 cm LA/Ao 1.2 LVOT diam 1.9 cm LVOT area 2.7 cm\S\2 LVAd ap4 26.3 cm\S\2 LVLd ap4 6.6 cm EDV(MOD-sp4) 81.4 ml EDV(sp4-el) 89.0 ml LVAs ap4 19.2 cm\S\2 LVLs ap4 6.0 cm ESV(MOD-sp4) 51.1 ml ESV(sp4-el) 52.4 ml EF(MOD-sp4) 37.2 % EF(sp4-el) 41.1 % LVAd ap2 23.1 cm\S\2 LVLd ap2 6.4 cm EDV(MOD-sp2) 67.1 ml EDV(sp2-el) 70.4 ml LVAs ap2 15.3 cm\S\2 LVLs ap2 5.2 cm ESV(MOD-sp2) 37.0 ml ESV(sp2-el) 38.0 ml EF(MOD-sp2) 44.9 % EF(sp2-el) 46.0 % LVLd %diff -2.47 % EDV(MOD-bp) 76.9 ml LVLs %diff -14.51 % ESV(MOD-bp) 45.9 ml EF(MOD-bp) 40.3 % SV(MOD-sp4) 30.3 ml SI(MOD-sp4) 18.6 ml/m\S\2 SV(MOD-sp2) 30.1 ml SI(MOD-sp2) 18.5 ml/m\S\2 SV(MOD-bp) 31.0 ml SI(MOD-bp) 19.0 ml/m\S\2 SV(sp4-el) 36.6 ml SI(sp4-el) 22.5 ml/m\S\2 SV(sp2-el) 32.4 ml SI(sp2-el) 19.9 ml/m\S\2 Doppler Measurements and Calculations MV E max rob 68.5 cm/sec MV A max rob 110.5 cm/sec MV E/A 0.62 MV P1/2t max rob 68.3 cm/sec MV P1/2t 103.9 msec MVA(P1/2t) 2.1 cm\S\2 MV dec slope 192.4 cm/sec\S\2 MV dec time 0.31 sec Ao V2 max 101.2 cm/sec Ao max PG 4.1 mmHg Ao max PG (full) 0.54 mmHg KIERAN(V,A) 2.5 cm\S\2 KIERAN(V,D) 2.5 cm\S\2 LV V1 max PG 3.6 mmHg LV V1 max 94.4 cm/sec PA V2 max 88.3 cm/sec PA max PG 3.1 mmHg PI max rob 174.2 cm/sec PI max PG 12.1 mmHg PI dec slope 242.2 cm/sec\S\2 PI P1/2t 210.6 msec TR max rob 289.9 cm/sec
--- NOTE | 2017-03-04 19:42 | NEUROLOGY CONSULTATION ---
DATE OF CONSULTATION: 03/04/2017 REASON FOR CONSULTATION: Possible stroke. HISTORY OF PRESENT ILLNESS: The patient is an 86-year-old right-handed female with history of known dementia who is living nearby to a daughter and was Aicha into the last month or so, her son brought her to live in [place] for more close monitoring. About a month ago, she was treated for a UTI. On the day of admission, the patient complained of right face and arm numbness and family witnessed her to have dysarthria, it lasted approximately a half an hour and then resolved and the patient does not recall the symptoms. She has been agitated, confused, hallucinating and wondering at home since she has been in [place]. The [id number] thinks she may have had a stroke in the past. She has not otherwise been ill, her urine has been foul smelling and she is incontinent. Detailed review of systems is unknown. PAST MEDICAL HISTORY: Notable for asthma, reflux, poor vision. SURGICAL HISTORY: Cataract, bilateral total knee. MEDICATIONS: Nexium and ipratropium. FAMILY HISTORY: Noncontributory. SOCIAL HISTORY: Nonsmoker, nondrinker. She has lived in her own apartment for 15 years. DATA: CT of the head shows chronic vascular changes bilaterally. Carotid ultrasound, I believe has a typographical error, is written relative hemodynamically significant elevation of left internal carotid velocities secondary tortuosity. No focal stenosis. This is not having reviewed the images, it is not hemodynamically significant. CT of the head, noncontrast - paraventricular white matter changes. UA was consistent with a urinary tract infection. White count 8, H&H 14/41, platelet count 241. Coags: PT 10.9, PTT 24.4. Blood sugar on admission 106. Electrolytes otherwise unremarkable. Transaminases normal. PHYSICAL EXAMINATION: VITAL SIGNS: Temperature 36.4, heart rate 69, respirations 20, blood pressure 157/91, 96%. GENERAL: The patient is awake and alert, poor historian, oriented to person and hospital, but not the year. She does not know who the president is. She has some minor difficulty with naming, repetitions are adequate, she follows a 2/3 step command and has 0/3 memory at 3 minutes. NECK: There are no carotid bruits. HEART: No heart murmurs. Heart has regular rate and rhythm. LUNGS: Grossly clear. EXTREMITIES: There is no peripheral edema. Pulses are palpable and both posterior tibial pulses are intact. NEUROLOGICAL: Her pupils OS is greater than OD, both reactive, could not visualize the optic nerves, guzmán are inconsistent, motility normal. No facial asymmetry. Query decreased temperature right face. Motor 5/5. No drift. Normal rapid alternating movements. No resting cogwheel rigidity. Reflexes symmetric. Toes downgoing. Iajoqg-ho-svvo is limited by vision. Toe tapping is symmetric. There appears to be decreased sensation to temperature on the right. Gait was not tested. IMPRESSION: Possible lacunar infarction, left hemisphere. PLAN: 1. Antiplatelet therapy with aspirin, assessment of ongoing hypertension and treatment, if hypertension prolonged. 2. Echocardiography. 3. Do not believe there is any significant stenosis on carotid ultrasound. 4. Further assess vascular risk factors. 5. 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 At present, her behavior is a management issue. She has been started on Zyprexa and if that is tolerated and effective that is a reasonable choice. I tend to use Seroquel and would try that if the patient otherwise does not tolerate Zyprexa. I spoke to the patient's [id number]-ivy, they are looking for fpc placement. I believe the social work consultation has already been placed. We will follow with you. SHAHBAZ
[2017-03-04] MEDS: CEFTRIAXONE SOD INJ 1 GM in DEXTROSE 5% ADD-VANTAGE 50ML 50 ML IV SCH (23:33)
[2017-03-05 06:21] LABS: BASO % 0.6 %; BASO ABS # 0.04 K/uL (0-0.2); COMPLETE YES; HEMATOCRIT 40.1 % (37-47); IG% 0.2 %; LYMPH % 33.8 %; LYMPH ABS # 2.17 K/uL (1.2-3.4); MEAN CELL VOLUME 86.2 fL (80-100); MEAN CORPUSCULAR HGB CONC 33.7 g/dl (32-36); MEAN PLATELET VOLUME 10.6 fL (7.4-10.4); MONO % 17.8 %; NEUT % 44.6 %; PLATELET COUNT 206 K/uL (130-400); RED BLOOD COUNT 4.65 M/uL (4.2-5.4); WHITE BLOOD COUNT 6.42 K/uL (4.8-10.8)
[2017-03-05 06:55] LABS: BUN/CREATININE RATIO 12.3 (10-20); CALCIUM 8.7 mg/dl (8.5-10.1); CREATININE 1.1 mg/dl (0.60-1.20); POTASSIUM 3.6 mmol/L (3.5-5.1)
[2017-03-05 07:24] VITALS: BP 136/77; PULSE 66; TEMP 36.8; O2SAT 93
[2017-03-05] MEDS: ASPIRIN 81 MG ECTAB PO SCH (08:43)
[2017-03-05] MEDS: PANTOprazole SOD 40 MG TAB PO SCH (08:43)
[2017-03-05] MEDS: ATORVASTATIN 40 MG TAB PO SCH (08:43)
[2017-03-05] MEDS: HALOPERIDOL 1 MG TAB PO PRN (10:21)
[2017-03-05] MEDS: SODIUM CHLORIDE 0.9% 1000ML 1,000 ML IV SCH (11:06)
[2017-03-05 11:38] VITALS: BP 152/92; PULSE 81; TEMP 36.4; O2SAT 95
--- NOTE | 2017-03-05 11:42 | DIAGNOSTIC IMAGING REPORT ---
ORBIT RADIOGRAPHS 3 VIEWS HISTORY: pre-MRI screening. COMPARISON: None. FINDINGS: There are no radiopaque foreign bodies identified within the orbits. IMPRESSION: No radiopaque foreign bodies identified within the orbits. Electronically signed by: Juan Jose Georges M.D. 03/05/2017 11:41 AM Dictated Date/Time: 03/05/2017 11:40 AM
--- NOTE | 2017-03-05 12:52 | DIAGNOSTIC IMAGING REPORT ---
MRI OF THE BRAIN WITHOUT AND WITH IV CONTRAST CLINICAL HISTORY: Stroke like symptoms. Slurred speech. COMPARISON STUDY: Head CT March 03, 2017. TECHNIQUE: Utilizing a 1.5 Chanelle magnet and dedicated coil, multiplanar, multiecho imaging of the brain was performed pre and postcontrast administration. IV administration of 6.5 mL of Gadavist contrast was uneventful. FINDINGS: There are no areas of restricted diffusion. This study is mildly compromised by artifact but is diagnostic. No acute intracranial hemorrhage, midline shift or mass effect is present. Ventricular system is normal for age. There is moderate atrophy. Extensive white matter T2 hyperintensity suggest small vessel disease. There is no intracranial mass or pathologic enhancement. Calvarial signal is normal. Orbits and sinuses are unremarkable. IMPRESSION: 1. No acute intracranial findings. 2. No intracranial mass or pathologic enhancement. 3. Moderate atrophy and small vessel disease. Electronically signed by: Juan Jose Georges M.D. 03/05/2017 12:50 PM Dictated Date/Time: 03/05/2017 12:46 PM
--- NOTE | 2017-03-05 13:05 | DIAGNOSTIC IMAGING REPORT ---
MRA OF THE INTRACRANIAL CIRCULATION WITHOUT CONTRAST CLINICAL HISTORY: Stroke like symptoms. Slurred speech. COMPARISON STUDY: None. TECHNIQUE: Utilizing a 1.5 Chanelle magnet and 3-D [id number]-fzwskw technique, unenhanced MRA of the intracranial circulation was obtained. FINDINGS: This exam is moderately compromised by motion artifact. No intracranial aneurysm is identified although sensitivity is diminished on this exam. No abrupt vessel cut off is identified. The bilateral M1, M2, A1 and A2 segment are grossly intact. IMPRESSION: Study moderately compromised by motion artifact but no significant abnormality identified. Electronically signed by: Juan Jose Georges M.D. 03/05/2017 1:04 PM Dictated Date/Time: 03/05/2017 1:02 PM
[2017-03-05 15:35] VITALS: BP 137/85; PULSE 80; TEMP 36.4; O2SAT 95
--- NOTE | 2017-03-05 18:19 | Progress Note ---
Internal Med Progress Note Date of Service: Mar 05, 2017. Provider Documentation: SUBJECTIVE: resting comfortably afebrile says pain all over says eating ok family in room OBJECTIVE: Vital Signs-as noted below Exam: General-alert and awake. Not in distress ENT-normal hearing Neck-no neck masses Lungs-cta b/l no wheezing or crackles Heart-s1 and s2 heard regular rhythm no murmurs Abdomen-soft bowel sounds present non tender no distension Extremities-no edema no erythema Neuro-alert and awake moves extremities Lab data as noted below. ASSESSMENT & PLAN: 1. This is an 86-year-old female, who presents with possible cerebrovascular accident versus transient ischemic attack who presents with right-sided face and right upper extremity numbness and some slurred speech which has resolved. The patient is currently back to her baseline. CT of the head is unremarkable. Started on aspirin and statin carotid us unremarkable MRI/MRA head unremarkable echo unremarkable neurology on board. 2. urinary tract infection, metabolic encephalopathy? on Rocephin pansensitive klebsiella 3. Delirium dementia seroqel po prn im haldol prn 4.. Gastroesophageal reflux disease, continue Proton Pump Inhibitors. 5. Asthma. Continue nebulizers, 6 .deep venous thrombosis prophylaxis and TEDs for now. 7. Code status; level 1 full code for now. DISPOSITION pt/ot plan for placement social service for d/c planning Vital Signs: Date Time Temp Pulse Resp B/P (MAP) Pulse Ox O2 Delivery O2 Flow Rate FiO2 03/05/17 15:35 36.4 80 18 137/85 (102) 95 Room Air 03/05/17 11:38 36.4 81 18 152/92 (112) 95 Room Air 03/05/17 08:00 Room Air 03/05/17 07:24 36.8 66 16 136/77 (96) 93 Room Air 03/05/17 04:00 Room Air 03/05/17 00:00 Room Air 03/04/17 23:23 36.5 72 18 160/94 (116) 94 Room Air 03/04/17 20:03 35.6 78 20 162/81 (108) 95 Room Air 03/04/17 20:00 Room Air Lab Results: Results Past 24 Hours Test 03/05/17 05:32 Range/Units White Blood Count 6.42 4.8-10.8 K/uL Red Blood Count 4.65 4.2-5.4 M/uL Hemoglobin 13.5 12.0-16.0 g/dL Hematocrit 40.1 37-47 % Mean Corpuscular Volume 86.2 80-100 fL Mean Corpuscular Hemoglobin 29.0 25-34 pg Mean Corpuscular Hemoglobin Concent 33.7 32-36 g/dl Platelet Count 206 130-400 K/uL Mean Platelet Volume 10.6 7.4-10.4 fL Neutrophils (%) (Auto) 44.6 % Lymphocytes (%) (Auto) 33.8 % Monocytes (%) (Auto) 17.8 % Eosinophils (%) (Auto) 3.0 % Basophils (%) (Auto) 0.6 % Neutrophils # (Auto) 2.87 1.4-6.5 K/uL Lymphocytes # (Auto) 2.17 1.2-3.4 K/uL Monocytes # (Auto) 1.14 0.11-0.59 K/uL Eosinophils # (Auto) 0.19 0-0.5 K/uL Basophils # (Auto) 0.04 0-0.2 K/uL RDW Standard Deviation 43.4 36.4-46.3 fL RDW Coefficient of Variation 13.8 11.5-14.5 % Immature Granulocyte % (Auto) 0.2 % Immature Granulocyte # (Auto) 0.01 0.00-0.02 K/uL Sodium Level 142 136-145 mmol/L Potassium Level 3.6 3.5-5.1 mmol/L Chloride Level 111 98-107 mmol/L Carbon Dioxide Level 23 21-32 mmol/L Anion Gap 8.0 3-11 mmol/L Blood Urea Nitrogen 14 7-18 mg/dl Creatinine 1.10 0.60-1.20 mg/dl Est Creatinine Clear Calc Drug Dose 29.8 ml/min Estimated GFR () 51.9 Estimated GFR (Non- 44.8 BUN/Creatinine Ratio 12.3 10-20 Random Glucose 94 70-99 mg/dl Calcium Level 8.7 8.5-10.1 mg/dl
[2017-03-05 20:13] VITALS: BP 132/81; PULSE 73; TEMP 36.5; O2SAT 94; O2SAT 95
[2017-03-06] VITALS (8 sets, daily range): BP systolic 135–155; BP diastolic 74–101; PULSE 18–75; TEMP 36.3–36.9; O2SAT 93–96
[2017-03-06] MEDS: CEFTRIAXONE SOD INJ 1 GM in DEXTROSE 5% ADD-VANTAGE 50ML 50 ML IV SCH ×2
[2017-03-06 08:10] LABS: BASO % 0.6 %; BASO ABS # 0.04 K/uL (0-0.2); COMPLETE YES; EOS % 2.1 %; HEMATOCRIT 42.7 % (37-47); IG% 0.2 %; LYMPH % 32.3 %; LYMPH ABS # 2.13 K/uL (1.2-3.4); MEAN CELL VOLUME 85.9 fL (80-100); MEAN CORPUSCULAR HEMOGLOBIN 29.4 pg (25-34); MEAN CORPUSCULAR HGB CONC 34.2 g/dl (32-36); MEAN PLATELET VOLUME 10.6 fL (7.4-10.4); MONO % 12.9 %; NEUT % 51.9 %; PLATELET COUNT 215 K/uL (130-400); RED BLOOD COUNT 4.97 M/uL (4.2-5.4); WHITE BLOOD COUNT 6.59 K/uL (4.8-10.8)
[2017-03-06 08:43] LABS: BUN/CREATININE RATIO 14.5 (10-20); CALCIUM 8.8 mg/dl (8.5-10.1); CREATININE 0.86 mg/dl (0.60-1.20); POTASSIUM 3.4 mmol/L (3.5-5.1)
[2017-03-06] MEDS: ASPIRIN 81 MG ECTAB PO SCH (09:14)
[2017-03-06] MEDS: ATORVASTATIN 40 MG TAB PO SCH (09:14)
[2017-03-06] MEDS: PANTOprazole SOD 40 MG TAB PO SCH (09:14)
--- NOTE | 2017-03-06 12:26 | PROGRESS NOTE ---
DATE: 03/06/2017 I am seeing Mrs. Mcgee in followup of a transient episode of numbness on the right face and arm as well as dysarthria. MRI of the brain did not show any acute ischemia and carotid ultrasound showed no high grade stenosis. PHYSICAL EXAMINATION: On today's visit, she is awake but quite confused, oriented to person. So she is weak all over, will not particularly cooperate with commands. She will hold her arms up and let them drift symmetrically, but then uses her arms purposefully. She is visually impaired, so guzmán are unreliable. Speech is nondysarthric. There is no facial asymmetry. She withdraws symmetrically in the lowers. Toes are downgoing. IMPRESSION: 1. Dementia, vascular versus Alzheimer's. 2. Presumed transient ischemic attack. Continue risk factor modification, antiplatelet therapy with aspirin. If the family desires further evaluation and treatment for dementia, she can see us as an outpatient in the office. SHAHBAZ
--- NOTE | 2017-03-06 14:44 | Progress Note ---
Internal Med Progress Note Date of Service: Mar 06, 2017. Provider Documentation: SUBJECTIVE: resting comfortably afebrile says not feeling good but I cannot help her denies pain says she there is truck and unloading things eating breakfast OBJECTIVE: Vital Signs-as noted below Exam: General-alert and awake. Not in distress. confused ENT-normal hearing Neck-no neck masses Lungs-cta b/l no wheezing or crackles Heart-s1 and s2 heard regular rhythm no murmurs Abdomen-soft bowel sounds present non tender no distension Extremities-no edema no erythema Neuro-alert and awake moves extremities Lab data as noted below. ASSESSMENT & PLAN: 1. This is an 86-year-old female, who presents with possible cerebrovascular accident versus transient ischemic attack who presents with right-sided face and right upper extremity numbness and some slurred speech which has resolved. The patient is currently back to her baseline. CT of the head is unremarkable. Started on aspirin and statin carotid us unremarkable MRI/MRA head unremarkable echo unremarkable neurology on board- to continue aspirin and statin pt/ot 2. urinary tract infection, metabolic encephalopathy? on Rocephin pansensitive klebsiella 3. Delirium dementia Seroquel po prn im haldol prn continue same as needed 4.. Gastroesophageal reflux disease, continue Proton Pump Inhibitors. 5. Asthma. Continue nebulizers, 6 .deep venous thrombosis prophylaxis and TEDs for now. 7. Code status; level 1 full code for now. DISPOSITION pt/ot plan for placement-possibly in am social service for d/c planning Vital Signs: Date Time Temp Pulse Resp B/P (MAP) Pulse Ox O2 Delivery O2 Flow Rate FiO2 03/06/17 11:56 36.7 18 18 149/101 (117) 93 Room Air 150/97 (114) 03/06/17 07:59 36.3 69 20 155/95 (115) 96 Room Air 03/06/17 05:09 Room Air 03/06/17 04:26 36.9 75 18 141/94 (110) 96 Room Air 03/06/17 01:52 Room Air 03/06/17 00:00 36.4 69 20 135/74 (94) 96 Room Air 03/05/17 20:13 Room Air 03/05/17 20:13 95 Room Air 03/05/17 20:13 36.5 73 20 132/81 (98) 94 Room Air 03/05/17 16:00 Room Air 03/05/17 15:35 36.4 80 18 137/85 (102) 95 Room Air Lab Results: Results Past 24 Hours Test 03/06/17 07:30 Range/Units White Blood Count 6.59 4.8-10.8 K/uL Red Blood Count 4.97 4.2-5.4 M/uL Hemoglobin 14.6 12.0-16.0 g/dL Hematocrit 42.7 37-47 % Mean Corpuscular Volume 85.9 80-100 fL Mean Corpuscular Hemoglobin 29.4 25-34 pg Mean Corpuscular Hemoglobin Concent 34.2 32-36 g/dl Platelet Count 215 130-400 K/uL Mean Platelet Volume 10.6 7.4-10.4 fL Neutrophils (%) (Auto) 51.9 % Lymphocytes (%) (Auto) 32.3 % Monocytes (%) (Auto) 12.9 % Eosinophils (%) (Auto) 2.1 % Basophils (%) (Auto) 0.6 % Neutrophils # (Auto) 3.42 1.4-6.5 K/uL Lymphocytes # (Auto) 2.13 1.2-3.4 K/uL Monocytes # (Auto) 0.85 0.11-0.59 K/uL Eosinophils # (Auto) 0.14 0-0.5 K/uL Basophils # (Auto) 0.04 0-0.2 K/uL RDW Standard Deviation 42.9 36.4-46.3 fL RDW Coefficient of Variation 13.6 11.5-14.5 % Immature Granulocyte % (Auto) 0.2 % Immature Granulocyte # (Auto) 0.01 0.00-0.02 K/uL Sodium Level 142 136-145 mmol/L Potassium Level 3.4 3.5-5.1 mmol/L Chloride Level 113 98-107 mmol/L Carbon Dioxide Level 23 21-32 mmol/L Anion Gap 6.0 3-11 mmol/L Blood Urea Nitrogen 13 7-18 mg/dl Creatinine 0.86 0.60-1.20 mg/dl Est Creatinine Clear Calc Drug Dose 38.2 ml/min Estimated GFR () 69.9 Estimated GFR (Non- 60.3 BUN/Creatinine Ratio 14.5 10-20 Random Glucose 101 70-99 mg/dl Calcium Level 8.8 8.5-10.1 mg/dl
[2017-03-06] MEDS: QUETIAPINE FUMARATE 25 MG TAB PO PRN (18:44)
[2017-03-07] VITALS (7 sets, daily range): BP systolic 124–170; BP diastolic 76–98; PULSE 67–75; TEMP 36.1–36.8; O2SAT 92–96
[2017-03-07] MEDS: CEFTRIAXONE SOD INJ 1 GM in DEXTROSE 5% ADD-VANTAGE 50ML 50 ML IV SCH (00:55)
[2017-03-07] MEDS ORDERED: LISINOPRIL 2.5 MG TAB PO ONE (01:28)
--- NOTE | 2017-03-07 01:31 | Progress Note ---
Internal Med Progress Note Date of Service: Mar 07, 2017. Provider Documentation: Made aware by RN of elevated SBPs since yesterday. 140 to 170s. Patient comfortable as per RN. AP Hypertension likely long-standing with LVH on TTE No previous diagnosis Initiate low dose CHELSI inhibitor. Vital Signs: Date Time Temp Pulse Resp B/P (MAP) Pulse Ox O2 Delivery O2 Flow Rate FiO2 03/07/17 04:04 36.1 67 18 144/79 (100) 92 Room Air 03/07/17 04:00 Room Air 03/07/17 00:50 36.7 68 18 170/98 (122) 92 Room Air 03/07/17 00:00 Room Air 03/06/17 20:05 36.4 67 18 153/78 (103) 96 Room Air 03/06/17 20:00 Room Air 03/06/17 16:12 36.6 75 18 149/80 (103) 94 Room Air 03/06/17 16:00 Room Air 03/06/17 12:00 96 Room Air 03/06/17 11:56 36.7 18 18 149/101 (117) 93 Room Air 150/97 (114) 03/06/17 08:00 96 Room Air 03/06/17 07:59 36.3 69 20 155/95 (115) 96 Room Air Lab Results: Results Past 24 Hours Test 03/06/17 07:30 Range/Units White Blood Count 6.59 4.8-10.8 K/uL Red Blood Count 4.97 4.2-5.4 M/uL Hemoglobin 14.6 12.0-16.0 g/dL Hematocrit 42.7 37-47 % Mean Corpuscular Volume 85.9 80-100 fL Mean Corpuscular Hemoglobin 29.4 25-34 pg Mean Corpuscular Hemoglobin Concent 34.2 32-36 g/dl Platelet Count 215 130-400 K/uL Mean Platelet Volume 10.6 7.4-10.4 fL Neutrophils (%) (Auto) 51.9 % Lymphocytes (%) (Auto) 32.3 % Monocytes (%) (Auto) 12.9 % Eosinophils (%) (Auto) 2.1 % Basophils (%) (Auto) 0.6 % Neutrophils # (Auto) 3.42 1.4-6.5 K/uL Lymphocytes # (Auto) 2.13 1.2-3.4 K/uL Monocytes # (Auto) 0.85 0.11-0.59 K/uL Eosinophils # (Auto) 0.14 0-0.5 K/uL Basophils # (Auto) 0.04 0-0.2 K/uL RDW Standard Deviation 42.9 36.4-46.3 fL RDW Coefficient of Variation 13.6 11.5-14.5 % Immature Granulocyte % (Auto) 0.2 % Immature Granulocyte # (Auto) 0.01 0.00-0.02 K/uL Sodium Level 142 136-145 mmol/L Potassium Level 3.4 3.5-5.1 mmol/L Chloride Level 113 98-107 mmol/L Carbon Dioxide Level 23 21-32 mmol/L Anion Gap 6.0 3-11 mmol/L Blood Urea Nitrogen 13 7-18 mg/dl Creatinine 0.86 0.60-1.20 mg/dl Est Creatinine Clear Calc Drug Dose 38.2 ml/min Estimated GFR () 69.9 Estimated GFR (Non- 60.3 BUN/Creatinine Ratio 14.5 10-20 Random Glucose 101 70-99 mg/dl Calcium Level 8.8 8.5-10.1 mg/dl
[2017-03-07] MEDS: ATORVASTATIN 40 MG TAB PO SCH (08:19)
[2017-03-07] MEDS: ASPIRIN 81 MG ECTAB PO SCH (08:19)
[2017-03-07] MEDS: PANTOprazole SOD 40 MG TAB PO SCH (08:19)
[2017-03-07] MEDS: QUETIAPINE FUMARATE 25 MG TAB PO PRN (12:22)
[2017-03-07] MEDS ORDERED: AMLO2.5T PO (12:52)
[2017-03-07] MEDS ORDERED: CEFU1TAB36 PO (12:52)
[2017-03-07] MEDS ORDERED: TRAM-10 PO (12:52)
[2017-03-07] MEDS ORDERED: LPT40 PO (12:52)
[2017-03-07] MEDS ORDERED: QUET1TAB91 PO (12:52)
[2017-03-07] MEDS ORDERED: ASPEC81 PO (12:52)
[2017-03-07] MEDS ORDERED: LCTX PO (12:52)
--- NOTE | 2017-03-07 12:55 | Discharge Instructions ---
Discharge Instructions Date of Service Mar 07, 2017. Admission Reason for Admission: Stroke-Like Systoms; Uti Discharge Discharge Diagnosis / Problem: TIA, UTI, DELERIUM Discharge Goals Goal(s): Decrease discomfort, Improve function Activity Recommendations Activity Level: Up Ad Cassidy . Additional Information Patient informed of condition: Yes (DEMENTIA) Advance Directives: Yes DNR: No Level of Care: Skilled Communicable Disease: No Prognosis: Stable Aj Catheter: No Instructions / Follow-Up Instructions / Follow-Up FOLLOWUP WITH FAMILY DOCTOR IN ONE WEEK BLOOD PRESSURE CHECK WITH FAMILY DOCTOR. LAB: LFT'S IN 4-6 WEEKS STARTED ON LIPITOR. Current Hospital Diet Patient's current hospital diet: AHA Diet (Heart Healthy) Discharge Diet Recommended Diet: AHA Diet (Heart Healthy) Pending Studies Studies pending at discharge: no Physician Orders On Transfer Special Precautions: FALL AND ASPIRATION PRECAUTIONS Vital Signs: EVERY 8HRS Laboratory Results Hemoglobin A1c Test 03/04/17 08:47 Range/Units Estimated Average Glucose 123 mg/dl Hemoglobin A1c 5.9 H 4.5-5.6 % Lipid Panel Test 03/04/17 08:47 Range/Units Triglycerides Level 67 0-150 mg/dl Cholesterol Level 173 0-200 mg/dl HDL Cholesterol 64 mg/dl Cholesterol/HDL Ratio 2.7 LDL Cholesterol, Calculated 96 mg/dl Medical Emergencies . Who to Call and When: Medical Emergencies: If at any time you feel your situation is an emergency, please call 911 immediately. . Non-Emergent Contact Non-Emergency issues call your: Primary Care Provider . . "Provider Documentation" section prepared by Bismark Long. . Core Measure Problem Core Measures: None
--- NOTE | 2017-03-07 12:57 | Progress Note ---
Internal Med Progress Note Date of Service: Mar 07, 2017. Provider Documentation: SUBJECTIVE: WAS WALKING IN HALLWAYS AND NURSING STAFF BROUGHT HER BACK TO ROOM SAYS SHE IS DOING OK SAYS THERE WAS SOME EPIGASTRIC DISCOMFORT YESTERDAY BUT OK NOW AFEBRILE OBJECTIVE: Vital Signs-as noted below Exam: General-alert and awake. Not in distress. confused ENT-normal hearing Neck-no neck masses Lungs-cta b/l no wheezing or crackles Heart-s1 and s2 heard regular rhythm no murmurs Abdomen-soft bowel sounds present non tender no distension Extremities-no edema no erythema Neuro-alert and awake moves extremities Lab data as noted below. ASSESSMENT & PLAN: 1. This is an 86-year-old female, who presents with possible cerebrovascular accident versus transient ischemic attack who presents with right-sided face and right upper extremity numbness and some slurred speech which has resolved. The patient is currently back to her baseline. CT of the head is unremarkable. Started on aspirin and statin carotid us unremarkable MRI/MRA head unremarkable echo unremarkable neurology on board- to continue aspirin and statin MOST LIKELY TIA pt/ot STABLE CURRENTLY 2. urinary tract infection, metabolic encephalopathy? on Rocephin pansensitive klebsiella D/C ON CEFUROXIME 3. Delirium dementia Seroquel po prn im haldol prn D/C ON SEROQUEL PRN 4.. Gastroesophageal reflux disease, continue Proton Pump Inhibitors. 5. Asthma. Continue nebulizers, DISCHARGED TO SNF. Vital Signs: Date Time Temp Pulse Resp B/P (MAP) Pulse Ox O2 Delivery O2 Flow Rate FiO2 03/07/17 11:45 36.6 75 18 149/80 (103) 94 03/07/17 08:00 96 Room Air 03/07/17 07:16 36.8 74 18 124/76 (92) 96 03/07/17 04:04 36.1 67 18 144/79 (100) 92 Room Air 03/07/17 04:00 Room Air 03/07/17 00:50 36.7 68 18 170/98 (122) 92 Room Air 03/07/17 00:00 Room Air 03/06/17 20:05 36.4 67 18 153/78 (103) 96 Room Air 03/06/17 20:00 Room Air 03/06/17 16:12 36.6 75 18 149/80 (103) 94 Room Air 03/06/17 16:00 Room Air
--- NOTE | 2017-03-07 13:01 | Discharge Summary ---
Discharge Summary Date of Service Mar 07, 2017. Discharge Summary Admission Date: Mar 03, 2017 at 18:57 Discharge Date: Mar 07, 2017 Discharge Disposition: senior living facility Principal Diagnosis: TIA UTI DELIRIUM Secondary Diagnoses/Problems: GERD, asthma and decreased vision in both eyes Procedures: CT HEAD: 1. No acute intracranial pathology. CAROTID US: Relative hemodynamically significant elevation of left internal carotid artery velocity likely secondary to tortuosity. No focal stenosis resulting from atherosclerotic plaque. CT CHEST: 1. Large hiatal hernia which explains the left basilar opacity described on the chest x-ray dated 03/03/2017 2. No evidence of pneumonia 3. No evidence of pathologic adenopathy 4. Thyroid goiter MRA HEAD: Study moderately compromised by motion artifact but no significant abnormality identified. MRI HEAD: 1. No acute intracranial findings. 2. No intracranial mass or pathologic enhancement. 3. Moderate atrophy and small vessel disease. ECHO: The left ventricular wall motion is normal. * There is mild concentric left ventricular hypertrophy. * The LV Ejection Fraction = 60-65%. * Trace aortic regurgitation. * There is mild tricuspid regurgitation. * Doppler findings do not suggest pulmonary hypertension. * Grade I diastolic dysfunction, (abnormal relaxation pattern). * The atrial septum is aneurysmal. * There is no evidence of atrial septal defect, but resolution does not allow assessment for a patent foramen ovale. Consultations: NEUROLOGY Medication Reconciliation New Medications: Amlodipine (Norvasc) 2.5 Mg Tab 2.5 MG PO DAILY, #30 TAB 2 Refills Cefuroxime Axetil (Cefuroxime Axetil) 500 Mg Tab 1 TAB PO BID for 4 Days, #8 TAB Lactobacillus Acidophilus (Lactinex) Tab 2 TAB PO BID for 7 Days, TAB Quetiapine Fumarate (Seroquel) 25 Mg Tab 1 TAB PO TID PRN for Anxiety/Agitation for 30 Days, #30 TAB 1 Refill Aspirin (Aspirin EC Low Dose) 81 Mg Ectab 81 MG PO QAM, #30 2 Refills Atorvastatin (Atorvastatin Calcium) 40 Mg Tab 40 MG PO QAM, #30 TAB 2 Refills Continued Medications: Albuterol Sulf (Albuterol Sulfate) 2.5 Mg/3 Ml Nebu 3 ML PO Q6 PRN for Shortness of Breath Esomeprazole Magnesium (Nexium) 40 Mg Capcr 40 MG PO DAILY, CAP Tramadol (Ultram) 50 Mg Tab 50 MG PO Q8H PRN for Pain, #10 TAB (This prescription has been renewed) Admission Information HPI (per Admitting provider): This is an 86-year-old female with a past medical history significant for GERD, asthma and decreased vision in both eyes who recently moved from [place] to live with her son, recently establishing with [facility] doctors; saw the [facility] doctor about a month ago and was treated for UTI with Cipro, comes today because of right face and right upper extremity numbness. The patient's family is in the room. As per them, around 2:30pm the patient complained of numbness in her right upper extremity and also in the right side of the face. She developed some pain in right side of face and numbness and also some slurred speech at that time. It lasted for about an hour and when she was brought into the ER the symptoms had resolved. Currently she is resting comfortably, hemodynamically stable and all her symptoms have resolved; she is able to move her right extremity and there is no numbness in the right extremity. There is no pain. As per the family the patient also has dementia, lately she is not sleeping in the night, she sometimes hallucinates in the night and she dozes off in the daytime. Appetite is not great. The patient denies any chest pain, no shortness of breath. No headache. Dawson some lightheadedness earlier today. No recent fever or chills. No cough, no nausea and no abdominal pain. Normal bowel and bladder movements. Physical Exam (per Admitting): GENERAL: The patient is old and frail, not in distress. VITAL SIGNS: Temperature 36.8, pulse 76, respiratory rate 18, blood pressure 135/89 and oxygen 95% on room air. HEENT: No pallor, no icterus. Pupils are equal, round and reactive to light. NECK: No JVD, no neck masses, no carotid bruits. CARDIOVASCULAR: S1, S2 heard, regular rate and rhythm, no murmur, no gallop. RESPIRATORY SYSTEM: Clear to auscultation bilaterally. No accessory muscle use. No wheezing, no crackles. ABDOMEN: Soft, bowel sounds present. Nontender. No distention. CENTRAL NERVOUS SYSTEM: Cranial nerves II-XII grossly intact. Power 5/5 in all extremities. No pronator drift. Sensation is intact. Could not complete the exam as the patient is somewhat noncooperative secondary to her dementia. EXTREMITIES: No edema, no erythema. Hospital Course 1. This is an 86-year-old female, who presents with possible cerebrovascular accident versus transient ischemic attack who presents with right-sided face and right upper extremity numbness and some slurred speech which has resolved. The patient is currently back to her baseline. CT of the head is unremarkable. Started on aspirin and statin carotid us unremarkable MRI/MRA head unremarkable echo unremarkable neurology on board- to continue aspirin and statin MOST LIKELY TIA pt/ot STABLE CURRENTLY 2. urinary tract infection, metabolic encephalopathy? on Rocephin pansensitive klebsiella D/C ON CEFUROXIME 3. Delirium dementia Seroquel po prn im haldol prn D/C ON SEROQUEL PRN 4.. Gastroesophageal reflux disease, continue Proton Pump Inhibitors. 5. Asthma. Continue nebulizers, DISCHARGED TO SNF. Total time spent on discharge = 40MINUTES This includes examination of the patient, discharge planning, medication reconciliation, and communication with other providers. Discharge Instructions Discharge Instructions Date of Service Mar 07, 2017. Admission Reason for Admission: Stroke-Like Systoms; Uti Discharge Discharge Diagnosis / Problem: TIA, UTI, DELERIUM Discharge Goals Goal(s): Decrease discomfort, Improve function Activity Recommendations Activity Level: Up Ad Cassidy . Additional Information Patient informed of condition: Yes (DEMENTIA) Advance Directives: Yes DNR: No Level of Care: Skilled Communicable Disease: No Prognosis: Stable Aj Catheter: No Instructions / Follow-Up Instructions / Follow-Up FOLLOWUP WITH FAMILY DOCTOR IN ONE WEEK BLOOD PRESSURE CHECK WITH FAMILY DOCTOR. LAB: LFT'S IN 4-6 WEEKS STARTED ON LIPITOR. Current Hospital Diet Patient's current hospital diet: AHA Diet (Heart Healthy) Discharge Diet Recommended Diet: AHA Diet (Heart Healthy) Pending Studies Studies pending at discharge: no Physician Orders On Transfer Special Precautions: FALL AND ASPIRATION PRECAUTIONS Vital Signs: EVERY 8HRS Laboratory Results Hemoglobin A1c Test 03/04/17 08:47 Range/Units Estimated Average Glucose 123 mg/dl Hemoglobin A1c 5.9 H 4.5-5.6 % Lipid Panel Test 03/04/17 08:47 Range/Units Triglycerides Level 67 0-150 mg/dl Cholesterol Level 173 0-200 mg/dl HDL Cholesterol 64 mg/dl Cholesterol/HDL Ratio 2.7 LDL Cholesterol, Calculated 96 mg/dl Medical Emergencies . Who to Call and When: Medical Emergencies: If at any time you feel your situation is an emergency, please call 911 immediately. . Non-Emergent Contact Non-Emergency issues call your: Primary Care Provider . . "Provider Documentation" section prepared by Bismark Long. . Core Measure Problem Core Measures: None
[2017-03-07] MEDS ORDERED: POTASSIUM CHLORIDE 10 MEQ TABCR PO ONE (13:15)
[2017-03-08] MEDS ORDERED: LISINOPRIL 2.5 MG TAB PO SCH (09:00)
== END 2017-03-07 15:45 | DRG 689 ==
LOC: C.EDB 15:52 → EDBD 15:52 → C.MED 18:57 → EDBEDREQ 19:06 → ENRESERV 19:07 → CANRESERV 20:00 → ENRESERV 20:00
PROVIDERS: ADMIT Internal Medicine; ATTEND Internal Medicine
DX: N39.0 Urinary tract infection, site not specified (principal); G93.41 Metabolic encephalopathy; K21.9 Gastro-esophageal reflux disease without esophagitis; J45.909 Unspecified asthma, uncomplicated; A49.8 Other bacterial infections of unspecified site; Z82.49 Family history of ischemic heart disease and other diseases of the circulatory system

== ENCOUNTER → 2017-04-08 | Outpatient (CLI) | payer OTHER, MEDICARE ==
[~2017-04-08] MED LIST: AMLO2.5T PO; ASPEC81 PO; LPT40 PO; NXM/40 PO; QUET1TAB91 PO; RRALBUT083 PO; TRAM-10 PO
[2017-04-08 08:19] LABS: ALT/SGPT 14 U/L (12-78); AST/SGOT 15 U/L (15-37); BLOOD UREA NITROGEN 19 mg/dl (7-18); BUN/CREATININE RATIO 22.6 (10-20); CARBON DIOXIDE 23 mmol/L (21-32); CHLORIDE 111 mmol/L (98-107); CREATININE 0.85 mg/dl (0.60-1.20); GLUCOSE 94 mg/dl (70-99); POTASSIUM 3.9 mmol/L (3.5-5.1); SODIUM 142 mmol/L (136-145)
[2017-04-08 08:21] LABS: ALB/GLOB RATIO 0.8 (0.9-2); ALKALINE PHOSPHATASE 199 U/L (45-117)
== END ==
LOC: C.LABCC 07:57
PROVIDERS: ATTEND Internal Medicine
DX: E78.5 Hyperlipidemia, unspecified (principal)

== ENCOUNTER → 2017-05-11 | Outpatient (CLI) | payer OTHER, MEDICARE ==
[2017-05-11 09:45] LABS: MAGNESIUM 2.1 mg/dl (1.8-2.4); THYROID STIMULATING HORMONE 2.18 uIu/ml (0.300-4.500)
== END | disposition home or self-care (01) ==
LOC: C.LABCC 08:44
PROVIDERS: ATTEND Internal Medicine
DX: K21.9 Gastro-esophageal reflux disease without esophagitis (principal)

== ENCOUNTER → 2017-10-13 | Outpatient (CLI) | payer OTHER, MEDICARE ==
[2017-10-13 08:46] LABS: BASO % 0.4 %; BASO ABS # 0.03 K/uL (0-0.2); EOS % 3.1 %; EOS ABS # 0.23 K/uL (0-0.5); HEMATOCRIT 37.8 % (37-47); HEMOGLOBIN 12.7 g/dL (12.0-16.0); IG# 0.01 K/uL (0.00-0.02); LYMPH % 35.2 %; LYMPH ABS # 2.59 K/uL (1.2-3.4); MEAN CELL VOLUME 86.5 fL (80-100); MEAN CORPUSCULAR HEMOGLOBIN 29.1 pg (25-34); MEAN CORPUSCULAR HGB CONC 33.6 g/dl (32-36); MEAN PLATELET VOLUME 10.1 fL (7.4-10.4); MONO % 19.2 %; MONO ABS # 1.41 K/uL (0.11-0.59); NEUT ABS # 3.08 K/uL (1.4-6.5); PLATELET COUNT 212 K/uL (130-400); RED CELL DISTRIBUTION WIDTH CV 14.5 % (11.5-14.5); WHITE BLOOD COUNT 7.35 K/uL (4.8-10.8)
[2017-10-13 08:55] LABS: ALBUMIN 2.8 gm/dl (3.4-5.0); ALT/SGPT 17 U/L (12-78); BLOOD UREA NITROGEN 25 mg/dl (7-18); CALCIUM 8.6 mg/dl (8.5-10.1); CARBON DIOXIDE 26 mmol/L (21-32); CREATININE 1.08 mg/dl (0.60-1.20); GLUCOSE 87 mg/dl (70-99); POTASSIUM 4.1 mmol/L (3.5-5.1); SODIUM 141 mmol/L (136-145)
[2017-10-13 09:05] LABS: ALKALINE PHOSPHATASE 86 U/L (45-117); AST/SGOT 18 U/L (15-37); TOTAL PROTEIN 6.1 gm/dl (6.4-8.2)
== END ==
LOC: C.LABCC 08:21
PROVIDERS: ATTEND Internal Medicine
DX: F03.90 Unspecified dementia, unspecified severity, without behavioral disturbance, psychotic disturbance, mood disturbance, and anxiety (principal); K21.9 Gastro-esophageal reflux disease without esophagitis; J45.909 Unspecified asthma, uncomplicated; R53.1 Weakness; G45.9 Transient cerebral ischemic attack, unspecified

== ENCOUNTER → 2018-02-23 | Outpatient (CLI) | payer OTHER, MEDICARE ==
[~2018-02-23] MED LIST changes: -ASPEC81 PO; +ASPI-320 PO
== END ==
LOC: C.LABSPEC 22:00
PROVIDERS: ATTEND Internal Medicine
DX: N39.0 Urinary tract infection, site not specified (principal)